=== PATIENT | female | born 2000 | race Caucasian/White ===

== ENCOUNTER 2021-01-06 14:05 | Outpatient (CLI) | payer OTHER, SELFPAY ==
[2021-01-06 15:18] LABS: Ferritin 28 ng/mL (8-252); Iron 221 ug/dL (50-170); Percent Iron Saturation 47 % (12-57)
[2021-01-10 10:14] LABS: Transferrin 387 mg/dL (188-341)
== END 2021-01-06 14:06 | disposition home or self-care (01) ==
LOC: CHSLAB 14:12
PROVIDERS: PCP Nurse Practitioner
DX: D64.9 Anemia, unspecified (principal)
CPT/HCPCS: 36415; 82728; 83540; 83550; 84466

== ENCOUNTER 2021-08-09 10:06 | Outpatient (CLI) | payer OTHER, SELFPAY ==
--- NOTE | ~2021-08-09 | XR_ITS ---
EXAMINATION: XR abdomen/kub 1V DATE: 08/09/2021 10:23 INDICATION: Hematuria. Left flank pain. TECHNIQUE: A supine view of the abdomen was obtained. COMPARISON: CT abdomen and pelvis 03/10/2015 FINDINGS: There are no dilated loops of bowel. There is a 2 mm stone in left kidney. There are phlebo liths in the pelvis. IMPRESSION: 1. 2 mm stone in left kidney. Reviewed, dictated and finalized at location A.
== END 2021-08-09 10:07 | disposition home or self-care (01) ==
LOC: CHSIMG 10:07
PROVIDERS: PCP Nurse Practitioner; Visit Provider Nurse Practitioner
DX: R31.9 Hematuria, unspecified (principal)
CPT/HCPCS: 74018

== ENCOUNTER 2021-09-08 07:29 | Outpatient (CLI) | payer OTHER, SELFPAY ==
--- NOTE | ~2021-09-08 | CT_ITS ---
EXAMINATION: CT abdomen pelvis wo con DATE: 09/08/2021 07:56 INDICATION: Left flank pain TECHNIQUE: Computed tomography (CT) of the abdomen and pelvis was performed without intravenous contr ast. The dose-length product (DLP) was 161.01 mGy-cm. Automated exposure control and iterative recons truction technique were employed. COMPARISON: 03/10/2015 FINDINGS: The lung bases are clear. The heart size is normal. Within the limitations of noncontrast e xamination, the liver, spleen, pancreas, gallbladder, and adrenal glands are normal. There are two no nobstructing stones of the left kidney which measure 2 mm. The right kidney is unremarkable. The uret ers are difficult to trace due to a paucity of abdominal and pelvic fat. There is a 2 mm calcificatio n in the left pelvis not definitely identified on the comparison examination which may be in the left distal ureter. No hydronephrosis or hydroureter are noted. No pathologically enlarged abdominal or p elvic lymph nodes are identified. There is no free intraperitoneal gas or evidence of bowel obstructi on. IMPRESSION: 1. Possible 2 mm stone of the distal left ureter. 2. Nonobstructing left nephrolithiasis. Reviewed, dictated and finalized at location B.
== END 2021-09-08 07:30 | disposition home or self-care (01) ==
LOC: CHSIMG 07:32
PROVIDERS: PCP Nurse Practitioner
DX: R10.9 Unspecified abdominal pain (principal); N20.0 Calculus of kidney
CPT/HCPCS: 74176

== ENCOUNTER 2021-11-01 14:56 | Outpatient (CLI) | payer OTHER, SELFPAY ==
--- NOTE | ~2021-11-01 | US_ITS ---
US retroperitoneal comp 11/01/2021 15:56 Procedure: Realtime transabdominal ultrasound of the kidneys and bladder. Indication: Left kidney stones Comparison: CT dated 09/08/2021 Findings: Renal echotexture is normal bilaterally without hydronephrosis, contour deforming mass. The re is an 4 mm echogenic focus in the lower pole of the left kidney, consistent with nonobstructing re nal stone. The right kidney measures 10.6 cm and left kidney measures 11 cm. Bladder within normal l imits. Impression: 1: Nonobstructing left nephrolithiasis. Reviewed, dictated and finalized at location A. Impression: 1: Nonobstructing left nephrolithiasis.
== END 2021-11-01 14:57 | disposition home or self-care (01) ==
LOC: CHSIMG 14:57
DX: N20.0 Calculus of kidney (principal)
CPT/HCPCS: 76770

== ENCOUNTER 2022-01-13 14:32 | Outpatient (CLI) | payer OTHER, SELFPAY ==
--- NOTE | ~2022-01-13 | XR_ITS ---
EXAMINATION: XR chest 2V DATE: 01/13/2022 14:52 INDICATION: Preoperative clearance. TECHNIQUE: PA and lateral views of the chest were obtained. COMPARISON: Chest radiograph dated 05/05/17 FINDINGS: Lungs are clear with no focal airspace opacities, pulmonary edema, pleural effusion or pneumothorax. The cardiomediastinal silhouette is normal. Visualized bones and soft tissues are unremarkable. IMPRESSION: 1. Normal chest radiograph. Reviewed, dictated and finalized at location A. IMPRESSION: 1. Normal chest radiograph.
== END 2022-01-13 14:33 | disposition home or self-care (01) ==
LOC: CHSIMG 14:34
PROVIDERS: PCP Nurse Practitioner; Visit Provider Nurse Practitioner
DX: Z01.818 Encounter for other preprocedural examination (principal)
CPT/HCPCS: 71046

== ENCOUNTER 2022-02-08 17:43 | Outpatient (CLI) | payer OTHER, SELFPAY ==
--- NOTE | ~2022-02-08 | XR_ITS ---
EXAM: XR abdomen/kub 1V DATE: 02/08/2022 18:05 HISTORY: URINARY SYMPTOM . COMPARISON: 08/09/2021, CT abdomen and pelvis 09/08/2021. FINDINGS: Clear lung bases. Normal bowel gas pattern. The liver is enlarged. Pelvic phleboliths. Reg ional bones and soft tissues normal for age. IMPRESSION: The previously described 2 mm left nephrolith is not confidently visualized. Hepatomegaly . Reviewed, dictated and finalized at location K. IMPRESSION: The previously described 2 mm left nephrolith is not confidently vi sualized. Hepatomegaly.
== END 2022-02-08 17:44 | disposition home or self-care (01) ==
LOC: CHSLAB 17:46
PROVIDERS: PCP Nurse Practitioner
DX: R39.9 Unspecified symptoms and signs involving the genitourinary system (principal)
CPT/HCPCS: 74018; 87086

== ENCOUNTER 2022-03-01 17:42 | Outpatient (CLI) | payer OTHER, SELFPAY ==
--- NOTE | ~2022-03-01 | XR_ITS ---
XR abdomen/kub 1V DATE: 03/01/2022 17:59 INDICATION: Hematuria. Left flank pain. TECHNIQUE: AP view COMPARISON: 02/08/2022 KUB 09/08/[address] abdomen pelvis FINDINGS: There are couple of calcified pelvic phleboliths on each side. No apparent urinary tract ca lcification is noted radiographically. Noncontrast CT abdomen pelvis examination would be more sensit jamie for detection of urinary tract calculi. Nonspecific bowel gas pattern without evidence of obstruction. No visceromegaly is evident. The lung bases appear clear. Mild thoracolumbar levoscoliosis. IMPRESSION: Nonspecific abdomen Reviewed, dictated and finalized at Location A. Reviewed, dictated and finalized at location A. IMPRESSION: Nonspecific abdomen
== END 2022-03-01 17:43 | disposition home or self-care (01) ==
LOC: CHSIMG 17:44
PROVIDERS: PCP Nurse Practitioner; Visit Provider Nurse Practitioner
DX: R31.9 Hematuria, unspecified (principal)
CPT/HCPCS: 74018

== ENCOUNTER 2022-03-27 09:29 | Outpatient (CLI) | payer OTHER, SELFPAY ==
--- NOTE | ~2022-03-27 | US_ITS ---
US retroperitoneal comp 03/27/2022 10:13 Procedure: Realtime transabdominal ultrasound of the kidneys and bladder. Indication: Nephrolithiasis Comparison: Flank pain. History of nephrolithiasis.. Findings: Renal echotexture is normal bilaterally without hydronephrosis, contour deforming mass. The re are echogenic foci in both kidneys measuring up to 4 mm on the right and 8 mm on the left, suspici ous for nonobstructing renal stones. The right kidney measures 11.1 cm and left kidney measures 10.9 cm. Bladder within normal limits. Prevoid volume is 6 12 cc. Postvoid volume is 10 cc. Impression: 1: Possible bilateral nonobstructing renal stones. No hydronephrosis. Reviewed, dictated and finalized at location B. F INNOVATION OFFICER Impression: 1: Possible bilateral nonobstructing renal stones. No hydronephrosis.
== END 2022-03-27 09:30 | disposition home or self-care (01) ==
LOC: CHSIMG 09:30
PROVIDERS: PCP Nurse Practitioner
DX: N20.0 Calculus of kidney (principal)
CPT/HCPCS: 76770

== ENCOUNTER 2024-05-23 00:26 | Day surgery (SDC) | payer BC, SELFPAY ==
--- NOTE | 2024-05-21 16:15 | PM.IMHP ---
H&P: HPI History of Present Illness Date/Time: 05/21/24 16:15 Chief Complaint: Missed 1st trimester Narrative: 23-year-old 1 para 0 under 1st trimester with demise uterus is about 6-7 weeks in size with no heart tones. Risks and benefits of suction D and C reviewed Review of Systems Review of Systems: All systems reviewed & are unremarkable except as noted in HPI and below Exam Const: General: cooperative, healthy appearing and comfortable Nutritional Appearance: average body habitus Orientation/consciousness: oriented to person, oriented to place and oriented to time Resp: Effort & Inspection: normal respiratory effort Cardio: Rate: regular rate Rhythm: regular rhythm Heart sounds: S1 normal heart sound present and S2 normal heart sound present GI: Inspection: normal to inspection : External Female Exam: normal external appearance Speculum Exam - Vagina: normal appearance of the vagina Speculum Exam - Cervix: normal appearance of the cervix Bimanual exam- vagina & uterus: enlarged Bimanual Exam- Adnexa, other: normal adnexae Assessment and Plan Assessment and plan (1) Missed : Code(s): O02.1 - Missed Status: Acute Plan Proceed with suction dilatation and curettage
[2024-05-22 08:49] VITALS: BMI 23.6
--- NOTE | 2024-05-22 08:50 | PC.NURSE ---
Report to the Outpatient Waiting Room, entrance under the green pavilion located off [facility], at time _115pm_ on date _[id number]_. Planned Procedure Time: _315pm_.? Time changes happen often and if your time is changed the preop area will call you the afternoon before. - You and your visitor will be asked to self-screen and do not enter if you have any COVID symptoms. Please call surgeon if you need to reschedule. - A mask is optional within the hospital at this time. Patients may have clear liquids (water, carbonated beverages, clear teas, apple juice) until 3 hours prior to surgery with a maximum of 20 ounces. - No food from midnight until time of surgery and no smoking. This includes no chewing gum, candy or mints. Take only the following medications with a SIP of water on the morning of surgery: ___Sertraline___ DO NOT STOP ANY OF YOUR OTHER PRESCRIPTION MEDICATIONS PRIOR TO SURGERY EXCEPT THE FOLLOWING Medications to discontinue per physician ____Vitamin Date to take last dose__Stop now.__ Please no make-up, nail czech, hairspray, perfume, deodorant, or body powder the day of surgery.? No jewelry (including any body piercings) or valuables the day of surgery, leave them at home.? Please take a shower or bath the night before, or the morning of, surgery with an antibacterial soap.? Wear comfortable, loose fitting clothing.? - Jewelry must be removed prior to entering the operating room.? Rings and piercings that are not removed may be cut off. - The hospital will not accept responsibility for valuables.? - Please leave all valuables, including medications, at home the day of surgery. If you are going home after surgery, a licensed c[employer] company driver must drive you home.? - NO public transportation without another adult if you receive anesthesia. - We recommend that an adult stay with you for 24 hours following discharge. - We also recommend that you do not drive, make important decision, drink alcoholic beverages, or take any drugs that were not prescribed by your health care provider for at least 24 hours after your discharge time. Follow any additional instructions given to you from your surgeon. Telephone instructions given to __Milagro__and asked if any additional questions and then verbalized understanding. Patient advised to call surgeon office or pre surgery nurse liaison [phone] if any additional questions.
--- NOTE | 2024-05-23 07:18 | WPDHPUPDATE1 ---
History and Physical Update Update Date/Time: 05/23/24 07:18 History and Physical has been reviewed, including an updated exam of the patient. There are NO changes in the patient's condition. Risks, benefits, and alternatives have been discussed and questions answered. Patient agrees to proceed with procedure.
[2024-05-23 13:20] VITALS: BP 118/61; PULSE 78; RESP 16; TEMP 37.1; O2SAT 100
[2024-05-23] MEDS: ACETAMINOPHEN 500 MG TABLET 1000 MG PO (13:40)
--- NOTE | 2024-05-23 13:44 | WPDANESEPPF ---
Anes - Initial Pre Proc Eval Procedure: Operation Date: 05/23/24 15:15 Proposed Procedures p Suction Dilatation and Curettage - Timothy Whiting MD Date/Time: 05/23/24 13:44 Surgeon: Timothy Whiting MD Pre Op Diagnosis: missed AB Patient Data Age: 23 Gender: F Height: 1.5 m Weight: 53.2 kg Allergies Allergy/AdvReac Type Severity Reaction Status Date / Time No Known Allergies Allergy Verified 05/22/24 08:40 Home Medications ?Medication ?Instructions ?Recorded ?Confirmed ?Type vit no.95-ferrous 1 tablet PO DAILY 05/22/24 05/22/24 History fumarate 28 mg-folic acid 800 mcg tablet () sertraline 100 mg tablet 100 mg PO DAILY 05/22/24 05/22/24 History hydrocodone 5 mg-acetaminophen 325 1 tablet PO Q4H PRN pain #14 tabs 05/23/24 Rx mg tablet Patient hx anesthesia problems: none Family hx anesthesia problems: none Results Review: All pre-operative results and documents have been reviewed as part of the pre-operative evaluation. [facility] Past Medical History Medical History (Updated 05/23/24 @ 13:44 by Timothy Crisostomo MD) Missed Surgical History Surgical History (Updated 05/23/24 @ 13:44 by Timothy Crisostomo MD) H/O colonoscopy Social History Social History Smoking packs per day: 1 Smoking cigarettes per day: 20.0 Years smoked: 3 Smoking pack-years: 3.00 Smoking status: Current every day smoker Tobacco type: cigarettes Additional smoking assessment comments: Stopped for , hopes to not restart. Living arrangements: with family Spiritual care concerns: No Anes - Eval Final PreProcedure Day of Procedure 05/23/24 13:44 Patient weight: normal Heart: regular rate and rhythm Lungs: clear to auscultation Airway: Mallampati scale class II Neurological: alert and oriented Last oral intake: >/= 8 hours ASA classification: II Emergent: no Anesthetic plan: proceed Anesthesia type and monitoring: general GIVS and standard monitoring Results Review: All pre-operative results and documents have been reviewed as part of the pre-operative evaluation. Informed Consent: The patient's anesthetic plan and its attendant risks and benefits were discussed with the patient/family/POA. Questions were solicited and answers provided to the satisfaction of the patient/family/POA.
[2024-05-23] MEDS: LACTATED RINGERS 1,000 ML 30 ML IV CONT (13:45)
--- NOTE | 2024-05-23 14:39 | W.PM.PROC2 ---
Procedure Note - Detailed Date of Procedure 05/23/24 Pre-op Diagnosis missed AB Post-op Diagnosis Same Procedure Performed Suction dilatation and curettage Surgeon Timothy Whiting MD Anesthesia MAC and Local Indications This is 23-year-old 1 para 0 with first-trimester missed Findings Uterus sounded to 9cm. Tissue consistent with products of conception Description of Procedure The patient was prepped draped in the normal sterile fashion a placed in dorsal lithotomy position. Under excellent IV sedation weighted speculum placed in posterior fornix vagina. Anterior lip of the cervix grasped with a single-tooth tenaculum. 2.5cc 1% xylocaine anesthesia placed at 2, 4, 8, 10:00 a.m. of the cervix. Uterus sounded to 9cm. Serial dilatation with fragmented dilators performed followed by passes the 9. Suction curette removing a moderate amount of placental tissue. When a good grating sound was heard the instruments withdrawn the patient went to recovery in satisfactory condition. All sponge, needle, instrument counts were correct. There were no immediate complications Estimated Blood Loss 25 Drains No Packing No Pathology Yes Complications No immediate complications Condition Stable Disposition PACU
[2024-05-23 14:43] VITALS: BP 102/54; PULSE 73; RESP 16; O2SAT 98
[2024-05-23 15:10] VITALS: BP 95/59; PULSE 60; O2SAT 100
[2024-05-23 15:35] VITALS: BP 107/59; PULSE 59; RESP 18
--- OUTSIDE RECORDS SUMMARY | 2024-05-29 04:52 | XMS_ITS | Encounter Summary ---
Author Organization [facility] Address [facility]. [place], [place] [id number] [place] [address] Care Team Providers Care Business Performance Manager Name Role Phone Ana Maria Kidd [facility] Primary Care Provider [phone] Encounter Details Date Type Department Care Team (Late st Contact Info) Description 10/12/2018 Abstract SFL CONVERSION [address] [place] [address] , Generic Conversion, Social History Tobacco Use Types Packs/Day Years Used Date Smoking Tobacco: Never Assessed Comments Unknown Sex and Gender Information Value Date Recorded Sex Assigned at Not on file Legal Sex Female 10:57 PM AUDITOR Gender Identity Not on file Sexual Orientation Not on file documented as of this encounter Plan of Treatment Not on file documented as of this encounter Visit Diagnoses Not on filedocumented in this encounter Care Teams Business Performance Manager Relationship Specialty Start Date End Date Ana Maria Kidd FNP- [address] [place] [address] PCP - General NURSE PRACTITIONER 01/06/19 documented as of this encounter
--- OUTSIDE RECORDS SUMMARY | 2024-05-29 04:52 | XMS_ITS | Clinical Summary ---
Author Organization [facility] Address [address] [place] [address] Phone Care Team Providers Care Marketing Systems Analyst Name Role Phone Ramin Askew APRN, DIANA Unavailable Ramin Askew APRN, CNP Primary Care Pr ovider Allergies No known active allergies Medications propranolol (INDERAL) 10 MG Tablet Take 10 mg by mouth 2 times daily. 05/17/2023 Active sertraline (ZOLOFT) 100 MG Tablet Take 100 mg by mouth daily. Active pantoprazole (PROTONIX) 40 MG Tablet Delayed ResponseIndicati ons:Gastritis without bleeding, unspecified chronicity, unspecified gastritis type Take 1 Tablet by mouth daily. 90 Tablet 1 05/21/2023 Active sucralfate (CARAFATE) 1 GM TabletIndication s:Gastritis without bleeding, unspecified chronicity, unspecified gastritis type Take 1 Tablet by mouth every 6 hours. 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 Irritable bowel syndrome with constipation 02/21 Chronic constipation 01/17/2021 Anemia 12/29/2020 Immunizations Immunization Administration Dates Next Due DTAP VACCINE 02/02/2004, 2,03/29/1999,11/30,1998 HEP B/HIB Combined Vaccine 1998,1998 Hepatitis B Vaccine, Pediatric/adolescent 02/10/2002 Hib Vaccine,unspecified Formulation 02/10/2002 Human Papillomavirus Vaccine (HPV), quadrivalent 03/04/2014,10/21/2013,03/02/2010 Inactivated Polio Vaccine 02/02/2004,11/2001,1998,09/28 Influenza Vaccine, Quadrivalent, PF 03/04/2014 MMR Vaccine 02/02/2004,02/10/2002 Meningococcal C Conjugate Vaccine 03/02/2010 Meningococcal Vaccine 03/17/2015 TDAP Vaccine 03/02/2010 Varicella Vaccine Live 03/02/2010,02/10/2002 Family History Medical History Relation Name Comments Cancer Maternal Grandfather Lung Diabetes Maternal Grandmother Diabetes Mother Relation Name Status Comments Maternal Grandfather Maternal Grandmother Mother Social History Tobacco Use Types Packs/Day Years Used Date Smoking Tobacco: Never Smokeless Tobacco: Never Tobacco Cessation:Counseling Given: No Alcohol Use Standard Drinks/Week Comments Yes 4 (1 standard drink = 0.6 oz pur e alcohol) on weekends PHQ-2 Answer Date Recorded Total Score - Questions 1-9 2 04/06 Education Answer Date Recorded What is the highest level of school you have completed or the highest degree you have received? 12th grade 04/21/2022 Sexually Active Control Partners Comments Yes Oral Contraceptive Male Comments No Sex and Gender Information Value Date Recorded Sex Assigned at Not on file Legal Sex Female 4:47 PM CDT Gender Identity Not on file Sexual Orientation Not on file Last Filed Vital Signs Vital Sign Reading Time Taken Comments Blood Pressure 126/70 05/21/2023 8:53 AM BONE WORKER Pulse 54 05/21/2023 8:53 AM BONE WORKER Temperature 36.4 ??C (97.6 ??F) 05/21/2023 8:53 AM CS T Respiratory Rate 16 05/21/2023 8:53 AM BONE WORKER Oxygen Saturation 100% 05/21/2023 8:53 AM BONE WORKER Inhaled Oxygen Concentration - - Weight 52.3 kg (115 lb 4.8 oz) 05/21/2023 8:53 A M BONE WORKER Height 149.9 cm (4' 11 ) 05/21/2023 8:53 AM BONE WORKER Body Mass Index 23.29 05/21/2023 8:53 AM BONE WORKER Plan of Treatment Health Maintenance Due Date Last Done Comments Hepatitis C Virus (HCV) Screening 1998 Pap Smear 2019 DTaP/Tdap/Td Immunization (7 - Td or Tdap) 03/02/2020 03/02/2010, 02/02/2004, 02/10/2002, Additional history exists Influenza Immunization (#1) 2024 03/04/2014 SARS-COV-2 Immunization ( - 2023- season) 2024 Respiratory Syncytial Virus (RSV) Immunization (Adult) (1 - 1-dose 75+ series) 2073 Hepatitis B Immunization Completed 002, 1998, 1998 Human Papillomavirus (HPV) Immunization Completed 03/04/2014, 10/21/2013, 03/02/2010 Meningococcal Immunization (ACWY) Completed 03/17/2015 Pneumococcal Immunization Combined Aged Out No longer eligible based on patient's age to complete this topic Rotavirus Immunization Aged Out No lo nger eligible based on patient's age to complete this topic Care Teams Marketing Systems Analyst Relationship Specialty Start Date End Date Ramin Askew APRN, DIANA #[address] [address] PCP - General Advanced Practice Nurse 01/13/21 Ramin Askew APRN, DIANA #[address] [address] Nurse Practitioner Advanced Practice Nurse 12/24/20
--- OUTSIDE RECORDS SUMMARY | 2024-05-29 04:52 | XMS_ITS | Clinical Summary ---
Author Organization [facility] Address [address] [facility]. [place], [place] [address] [place] [address] Care Team Providers Care Dramatic Agent Name Role Phone Ana Maria Kidd [facility] Primary Care Provider [phone] Allergies No known active allergies Medications dextromethorphan -guaiFENesin ER (MUCINEX DM) 30-600 MG TABLET SR 12 HR 12 hr tabletIndication s:Acute cough,Fluid level behind tympanic membrane of both ears,Viral URI with cough Take 1 tablet by mouth every 12 (twelve) hours as needed. 28 tablet 04/18/2024 Active Encounters Date Type Department Care Team Description 04/18/2024 8:40 AM OFFICE MACHINES TEACHER Office Visit [place] [address] [place] [address] Julian aBrnes MD Congestion (Head congestion/Symptoms started beginning of April, she was taking sudafed and dayquil/nyquil but then had a missed period and took a test which was positive so she doesn't know what she is able to take. ); Sinus Problem (Post nasal drainage/) 04/18/2024 Travel from Last 3 Months Social History Tobacco Use Types Packs/Day Years Used Date Smoking Tobacco: Former Smokeless Tobacco: Former Tobacco Cessation:Counseling Given: Yes Alcohol Use Standard Drinks/Week Comments Yes 0 (1 standard drink = 0.6 oz pur e alcohol) rarely AUDIT-C Answer Date Recorded Frequency of Alcohol Consumption Never 01/06/2019 Average Number of Drinks Not on file 019 Frequency of Binge Drinking Not on file 06/2018 PHQ-2 Answer Date Recorded Patient Health Questionnaire-2 Score 0 04/18/2024 Comments Yes Sex and Gender Information Value Date Recorded Sex Assigned at Not on file Legal Sex Female 10:57 PM OFFICE MACHINES TEACHER Gender Identity Not on file Sexual Orientation Not on file Last Filed Vital Signs Vital Sign Reading Time Taken Comments Blood Pressure 114/72 04/18/2024 8:50 AM OFFICE MACHINES TEACHER Pulse 60 04/18/2024 8:50 AM OFFICE MACHINES TEACHER Temperature 36.1 ??C (97 ??F) 04/18/2024 8:50 AM OFFICE MACHINES TEACHER Respiratory Rate 16 04/18/2024 8:50 AM OFFICE MACHINES TEACHER Oxygen Saturation 99% 04/18/2024 8:50 AM OFFICE MACHINES TEACHER Inhaled Oxygen Concentration - - Weight 53.1 kg (117 lb) 04/18/2024 8:50 AM OFFICE MACHINES TEACHER Height 149.9 cm (4' 11 ) 04/18/2024 8:50 AM OFFICE MACHINES TEACHER Body Mass Index 23.63 04/18/2024 8:50 AM OFFICE MACHINES TEACHER Plan of Treatment Health Maintenance Due Date Last Done Comments Cervical Cancer Screening Pap Smear (Age 21 to 29) Every 3 Years 1998 Cervical Cancer Screening 1998 Annual Physical 2001 Hepatitis C 2016 DTaP, Tdap and Td Vaccines (7 - Td or Tdap) 03/02/2020 03/02/2010, 02/02/2004, 02/10/2002, Additional history exists COVID-19 Vaccine ( season) 2024 Influenza Adult (#1) 2024 03/04/2014 PHQ-2 (Physician [place]) 04/18/2025 04/18/2024 RSV Immunization or 60+ Years (1 - 1-dose 75+ series) 2073 Hepatitis B Vaccines Completed 02/10/2002, 1998, 1998 HPV Vaccines Completed 03/04/2014, 10/05, 03/02/2010 Meningococcal Vaccine Completed 03/17/2015, 010 Pneumococcal Vaccine: Pediatrics (0 to 5 Years) and At-Risk Patients (6 to 64 Years) Aged Out No longer eligible based on patient's age to complete this topic RSV Immunizations Under 20 Months Aged Out No longer eligible based on patient's age to complete this topic Insurance [facility] Care Teams Dramatic Agent Relationship Specialty Start Date End Date Ana Maria Kidd FNP-BC [address] [place] [address] PCP - General NURSE PRACTITIONER 01/06/19
== END 2024-05-23 15:50 | disposition home or self-care (01) ==
PROVIDERS: PCP Physician Assistant; Visit Provider Obstetrics & Gynecology
PROC: (CPT 59820; principal; 2024-05-23 15:15)
DX: O02.1 Missed abortion (principal); F17.210 Nicotine dependence, cigarettes, uncomplicated; Z79.891 Long term (current) use of opiate analgesic
CPT/HCPCS: 59820; 36415; 85461; 86850; 86900; 86901; 88305; A9270; J2003; J2250; J2704; J3010; J7120

== ENCOUNTER 2024-07-17 09:05 | Emergency (ER) | payer BC, SELFPAY ==
--- NOTE | 2024-07-17 09:05 | ED_ITS ---
HPI - URI/Sore Throat General Chief Complaint: Abdominal Pain Stated Complaint: exposed to flu Time Seen by Provider: 07/17/24 09:19 Source: patient, RN notes reviewed and old records reviewed Mode of arrival: ambulatory Limitations: no limitations History of Present Illness HPI Narrative: 24-year-old female presents to the [facility] with not feeling well. Start late last night or early this morning. Has had nausea. Was seen at a urgent care in [place] couple of days ago pop, was told she had allergies and to continue taking Zyrtec. Has also taken [id number] sinus medications. Patient is concerned because on Sunday, 2 days ago had an exposure to flu. Denies fevers. Patient reports ear discomfort. Onset (ago): hour(s) Treatments prior to arrival: cold medicine Related Data Home Medications ?Medication ?Instructions ?Recorded ?Confirmed ?Last Taken ?Type vit no.95-ferrous 1 tablet PO DAILY 05/22/24 05/23/24 05/22/24 History fumarate 28 mg-folic acid 800 mcg tablet () sertraline 100 mg tablet 100 mg PO DAILY 05/22/24 05/23/24 05/22/24 History nortriptyline 10 mg capsule mg 07/17/24 Unknown History Allergies Allergy/AdvReac Type Severity Reaction Status Date / Time No Known Allergies Allergy Verified 05/23/24 13:49 Review of Systems Review of Systems: All systems reviewed & are unremarkable except as noted in HPI and below Constitutional: Constitutional: Reports no additional constitutional complaints ENT: Reports as per HPI Cardiovascular: Cardiovascular: Reports no additional cardiovascular complaints, Denies chest pain and Denies dyspnea Respiratory: Respiratory: Reports no additional respiratory complaints, Denies chest congestion, Denies cough and Denies dyspnea Gastrointestinal: Gastrointestinal: Reports as per HPI, Reports nausea and Denies vomiting Musculoskeletal: Musculoskeletal: Reports no additional musculoskeletal complaints Integumentary/Breasts: Skin/Breast: Reports system reviewed and no additional complaints, except as docu PMFSH Past Medical History Medical History Missed Surgical History Surgical History H/O colonoscopy Social History Social History (Reviewed 07/17/24 @ 17:19 by KRYSTAL José Smoking packs per day: 1 Smoking cigarettes per day: 20.0 Years smoked: 3 Smoking pack-years: 3.00 Smoking status: Current every day smoker Tobacco type: cigarettes Additional smoking assessment comments: Stopped for , hopes to not restart. Living arrangements: with family Spiritual care concerns: No Comments At the time of my signature, I reviewed and agree with the nursing past medical, surgical, social, and family history. There is no relevant family history pertinent to the patient complaint. Exam Const: General: cooperative, healthy appearing, comfortable, no acute distress, well developed, alert and well nourished Nutritional Appearance: well nourished Orientation/consciousness: patient oriented x3 Limitations: no limitations HENMT: Head: normal to inspection Ears: hearing grossly normal bilaterally, external ears normal, TM's normal bilaterally, mastoids normal, no periauricular adenopathy and Abnormal EAC present Face/Nose/Sinus: Normal external nose present, Normal nares present, Normal nasal mucous membranes and turbinates present and No nasal discharge present Face and sinus: normal facial exam and face symmetric Mouth: Yes Normal oral and palatal mucosa present, Yes lip normal, Yes tongue normal and Yes moist mucous membranes Throat: posterior oropharynx normal, uvula midline and postnasal drainage Eyes: General: appearance normal, both eyes and all related structures Alignment and Position: alignment normal Neck: Neck: normal visual inspection, full ROM, no lymphadenopathy and no meningeal signs Chest: Chest palpation & inspection: normal inspection of the chest Resp: Effort & Inspection: normal respiratory effort and able to speak in complete sentences Auscultation: clear to auscultation bilaterally, no crackles, no rales, no rhonchi and no wheezes Cardio: Rate: regular rate Skin: General skin exam: normal color and no rashes or lesions noted Neuro: General: patient oriented x3, gait normal, moves all extremities and no meningeal signs Cognition (Neuro): normal cognition Speech: normal speech Gait exam (Neuro): Normal gait present Extrem: General: normal to inspection, full ROM, capillary refill normal and normal gait Psych: Appearance: grossly normal and well kempt Mental Status: mental status grossly normal Speech and movement: Normal speech and movement present and Clear speech present Affect: normal affect Attitude: cooperative Course Course Level of Care: Express Care Visit Vital Signs Vital signs: Vital Signs Temperature 98.1 F 07/17/24 09:12 Pulse Rate 65 07/17/24 09:12 Respiratory Rate 16 07/17/24 09:12 Blood Pressure 141/88 H 07/17/24 09:12 Pulse Oximetry 100 07/17/24 09:12 Oxygen Delivery Room Air 07/17/24 09:12 Temperature 98.1 F 07/17/24 09:12 Pulse Rate 65 07/17/24 09:12 Respiratory Rate 16 07/17/24 09:12 Blood Pressure 141/88 H 07/17/24 09:12 Pulse Oximetry 100 07/17/24 09:12 Oxygen Delivery Room Air 07/17/24 09:12 Reviewed MDM - URI/Sore Throat MDM Narrative Medical decision making narrative: Patient sitting in exam room. Nontoxic, vitals stable. Patient presents with URI symptoms, allergy like symptoms Patient is flu and COVID negative. Patient appropriate for outpatient treatment and follow-up Discharge instructions reviewed with patient, as well as provided in writing per nursing staff. The instructions also include specific and strict return/GO TO THE ER as well as f/u information. All questions have been answered, and the patient deny any further questions wi th discharge and discharge plan. Some parts of this dictation were generated by voice recognition software and may contain typographical and/or grammatical inaccuracies. Differential Diagnosis Differential diagnosis: Likely upper respiratory infection, otitis media, sinusitis, viral infection, bronchitis, influenza and pharyngitis Lab Data Labs: Lab Results 07/17/24 Range/Units 09:35 POC Influenza A Ag Negative (Negative) POC Influenza B Ag Negative (Negative) POC SARS CoV-2 Ag Negative (Negative) Reviewed Critical Care Time Critical Care Time Critical Care Time: No Discharge Plan Discharge Clinical Impression: Upper respiratory infection, viral Patient Disposition: Home, Self-Care Condition: Stable Instructions: Antibiotic Form, Upper Respiratory Infection (ED) Additional Instructions: continue [id number]-[id number] allergy medication today your flu and COVID test were negative. If you still have concerns for flu or COVID you can purchase a test from [employer] and retest in 2-3 days. Follow-up with your primary care provider for new or worsening symptoms go directly to the emergency room Patient Language: Persian Prescriptions: No Action nortriptyline 10 mg capsule sertraline 100 mg tablet 100 mg PO DAILY PNV cmb#95-ferrous fumarate-FA [] 28 mg iron- 800 mcg tablet 1 tablet PO DAILY Follow-up/Referrals: UNKNOWN,DOCTOR [Non-Staff] - Stand Alone Forms: Work/School Release IP Time of Disposition: 09:32
[2024-07-17 09:12] VITALS: BP 141/88; PULSE 65; RESP 16; TEMP 36.7; O2SAT 100
[2024-07-17 09:37] LABS: EDCOVIDSCREEN Negative (Negative); EDINFLUASCREEN Negative (Negative); EDINFLUBSCREEN Negative (Negative)
--- OUTSIDE RECORDS SUMMARY | 2024-07-17 10:02 | XMS_ITS | Encounter Summary ---
Author Organization [facility] Address [address] [place] [address] Care Team Providers Care Rotary Peel Oven Tender Name Role Phone Ana Maria Kidd [facility] Primary Care Provider [phone] Encounter Details Date Type Department Care Team (Late st Contact Info) Description 10/12/2018 Abstract SFL CONVERSION [address] [place] [address] , Generic Conversion, Social History Tobacco Use Types Packs/Day Years Used Date Smoking Tobacco: Never Assessed Comments Unknown Sex and Gender Information Value Date Recorded Sex Assigned at Not on file Legal Sex Female 10:57 PM [employer] TECH Gender Identity Not on file Sexual Orientation Not on file documented as of this encounter Plan of Treatment Not on file documented as of this encounter Visit Diagnoses Not on filedocumented in this encounter Care Teams Rotary Peel Oven Tender Relationship Specialty Start Date End Date Ana Maria Kidd FNP- [address] [place] [address] PCP - General NURSE PRACTITIONER 01/06/19 documented as of this encounter
--- OUTSIDE RECORDS SUMMARY | 2024-07-17 10:02 | XMS_ITS | Clinical Summary ---
Author Organization [facility] Address [address] [place] [address] Phone Care Team Providers Care Sweet Pickled Fruit Maker Name Role Phone Ramin Askew APRN, DIANA [...] Comments Blood Pressure 126/70 05/21/2023 8:53 AM WAITER/WAITRESS TAVERN Pulse 54 05/21/2023 8:53 AM WAITER/WAITRESS TAVERN Temperature 36.4 C (97.6 F) 05/21/2023 8:53 AM WAITER/WAITRESS TAVERN Respiratory Rate 16 05/21/2023 8:53 AM WAITER/WAITRESS TAVERN Oxygen Saturation 100% 05/21/2023 8:53 AM WAITER/WAITRESS TAVERN Inhaled Oxygen Concentration - - Weight 52.3 kg (115 lb 4.8 oz) 05/21/2023 8:53 A M WAITER/WAITRESS TAVERN Height 149.9 cm (4' 11 ) 05/21/2023 8:53 AM WAITER/WAITRESS TAVERN Body Mass Index 23.29 05/21/2023 8:53 AM WAITER/WAITRESS TAVERN Plan of Treatment Health Maintenance Due Date [...] age to complete this topic Care Teams Sweet Pickled Fruit Maker Relationship Specialty Start Date End Date Ramin Askew APRN, TRADE RECRUITER #[address] [address] PCP - General Advanced Practice Nurse 01/13/21 Ramin Askew APRN, DIANA #[address] [address] Nurse Practitioner Advanced Practice Nurse 12/24/20
--- OUTSIDE RECORDS SUMMARY | 2024-07-17 10:02 | XMS_ITS | Clinical Summary ---
Author Organization [facility] Address [address] [place] [address] Care Team Providers Care Spring Crater Name Role Phone Ana Maria Kidd [facility] Primary Care Provider [phone] Allergies No known active allergies Medications dextromethorphan -guaiFENesin ER (MUCINEX DM) 30-600 MG TABLET SR 12 HR 12 hr tabletIndication s:Acute cough,Fluid level behind tympanic membrane of both ears,Viral URI with cough Take 1 tablet by mouth every 12 (twelve) hours as needed. 28 tablet 04/18/2024 Active Encounters Date Type Department Care Team Description 04/18/2024 8:40 AM JELLY MAKER Office Visit [address] [place] [address] Julian Barnes MD Congestion (Head congestion/Symptoms started beginning of [...] on file Legal Sex Female 10:57 PM JELLY MAKER Gender Identity Not on file Sexual Orientation Not on file Last Filed Vital Signs Vital Sign Reading Time Taken Comments Blood Pressure 114/72 04/18/2024 8:50 AM JELLY MAKER Pulse 60 04/18/2024 8:50 AM JELLY MAKER Temperature 36.1 C (97 F) 04/18/2024 8:50 AM JELLY MAKER Respiratory Rate 16 04/18/2024 8:50 AM JELLY MAKER Oxygen Saturation 99% 04/18/2024 8:50 AM JELLY MAKER Inhaled Oxygen Concentration - - Weight 53.1 kg (117 lb) 04/18/2024 8:50 AM JELLY MAKER Height 149.9 cm (4' 11 ) 04/18/2024 8:50 AM JELLY MAKER Body Mass Index 23.63 04/18/2024 8:50 AM JELLY MAKER Plan of Treatment Health Maintenance Due Date Last Done Comments Cervical Cancer Screening Pap Smear (Age 21 to 29) Every 3 Years 1998 Cervical Cancer Screening 1998 Annual Physical 2001 Hepatitis C 2016 DTaP, Tdap and Td Vaccines (7 - Td or Tdap) 03/02/2020 03/02/2010, 02/02/2004, 02/10/2002, Additional history exists COVID-19 Vaccine ( season) 2024 Influenza Adult (#1) 2024 03/04/2014 PHQ-2 ([facility]) 05/07/2024 04/18/2024 PHQ-2 ([facility]) 04/18/2025 04/18/2024 RSV Immunization or 60+ Years (1 - 1-dose 75+ series) 2073 Hepatitis B Vaccines Completed 02/10/2002, 1998, 1998 HPV Vaccines Completed 03/04/2014, 10/05, 03/02/2010 Meningococcal Vaccine Completed 03/17/2015, 010 Meningococcal B Vaccine Aged Out No l onger eligible based on patient's age to complete this topic Pneumococcal Vaccine: Pediatrics (0 to 5 Years) and At-Risk Patients (6 to 64 Years) Aged Out No longer eligible based on patient's age to complete this topic RSV Immunizations Under 20 Months Aged Out No longer eligible based on patient's age to complete this topic Insurance [facility] Care Teams Spring Crater Relationship Specialty Start Date End Date Ana Maria Kidd FNP-BC [address] [place] [address] PCP - General NURSE PRACTITIONER 01/06/19
== END 2024-07-17 09:36 | disposition home or self-care (01) ==
PROVIDERS: Emergency Provider Nurse Practitioner
DX: J06.9 Acute upper respiratory infection, unspecified (principal); B97.89 Other viral agents as the cause of diseases classified elsewhere; F17.210 Nicotine dependence, cigarettes, uncomplicated; Z20.822 Contact with and (suspected) exposure to COVID-19
CPT/HCPCS: 87426; 87804; 99212; G0463

== ENCOUNTER 2025-03-15 18:37 | Observation (INO) | payer BC, SELFPAY ==
[2025-03-15 21:31] VITALS: BMI 24.0
--- NOTE | 2025-03-15 21:31 | OBADM ---
This patient, Milagro Mcfadden, admitted to the OB room Labor/Delivery/Recovery 106 for observation. Patient/family oriented to hospital policies and general routines including ID bracelet, bed and alarms, visiting hours, pain management, procedures, bathroom and other care routines, personal items, smoking policy, room service/diet, and visiting hours. Patient/Family are encouraged to report perceived risks to care and to ask questions if they do not understand what they are told or what they should do.
--- NOTE | 2025-03-18 06:28 | PM.OBTRLD ---
OB - Triage/Final Diagnosis Visit Information Reason for evaluation: threatened labor Comments/Additional reasons for admission: I have assessed the risk for this patient, Milagro Mcfadden, and determined that she would benefit from observation care.
== END 2025-03-15 21:30 | disposition home or self-care (01) ==
PROVIDERS: Admitting Provider Obstetrics & Gynecology; Visit Provider Obstetrics & Gynecology
DX: O47.1 False labor at or after 37 completed weeks of gestation (principal); Z3A.38 38 weeks gestation of pregnancy
CPT/HCPCS: G0378; G0379

== ENCOUNTER 2025-03-16 15:45 | Observation (INO) | payer BC, SELFPAY ==
[2025-03-16 18:32] VITALS: BMI 24.5
[2025-03-16 18:38] LABS: OBXCEM ROM Plus Negative (Negative)
--- NOTE | 2025-03-18 06:27 | PM.OBTRLD ---
OB - Triage/Final Diagnosis Visit Information Reason for evaluation: threatened labor Comments/Additional reasons for admission: I have assessed the risk for this patient, Milagro Mcfadden, and determined that she would benefit from observation care. Evaluation Laboratory results: Laboratory Tests 03/16/25 16:22 Membranes Rupture Rom plus negative
== END 2025-03-16 19:09 | disposition home or self-care (01) ==
PROVIDERS: Admitting Provider Obstetrics & Gynecology; Visit Provider Obstetrics & Gynecology
DX: O47.1 False labor at or after 37 completed weeks of gestation (principal); Z3A.38 38 weeks gestation of pregnancy
CPT/HCPCS: 84112; G0378; G0379

== ENCOUNTER 2025-03-18 10:35 | Inpatient (IN) | payer BC, SELFPAY ==
[2025-03-18] VITALS (12 sets, daily range): BP systolic 109–172; BP diastolic 59–153; PULSE 54–98; RESP 16–18; TEMP 36.6–37.6; O2SAT 99–100; BMI 24.5
[2025-03-18 11:44] LABS: Hematocrit 30.5 % (37.0-47.0); Hemoglobin 10.6 g/dL (12.0-15.0); Immature Granulocyte Percent A 0.5 % (0-0.5); Lymphocytes Absolute Auto 2.02 K/mm3 (0.9-3.2); Mean Corpuscular HGB Conc 34.8 g/dl (32-36); Mean Corpuscular Hemoglobin 30.5 pg (26-34); Mean Corpuscular Volume 87.6 fl (80-100); Nucleated Red Blood Cells Absolute Auto 0.000 K/mm3 (0.0-0.012); Nucleated Red Blood Cells Perc 0.0 % (0.0-0.2); Platelet Count Result 312 k/mm3 (150-375); Red Blood Count 3.48 M/mm3 (4.2-5.4); White Blood Count 16.6 K/mm3 (4.5-10.0)
[2025-03-18] MEDS: ONDANSETRON INJ 4 MG/2 ML VIAL IV PUSH (11:47)
[2025-03-18] MEDS: LACTATED RINGERS 1,000 ML 125 ML IV CONT (11:47)
--- NOTE | 2025-03-18 11:50 | PM.IMHP ---
H&P: HPI History of Present Illness Date/Time: 03/18/25 11:50 Chief Complaint: Rupture membranes at term Narrative: This is a 24-year-old 2 para 0010 whose last menstrual period was 06/22/2024, EDC is 03/29/2025, confirmed by 10 week ultrasound who presents at 38 half weeks gestation with spontaneous rupture membranes prior to admission. She is negative for group B strep passed her diabetic screen she notes from ruptured membranes just prior to admission Review of Systems Review of Systems: All systems reviewed & are unremarkable except as noted in HPI and below Constitutional: Constitutional: Reports no additional constitutional complaints ENT: Reports as per HPI Cardiovascular: Cardiovascular: Reports no additional cardiovascular complaints, Denies chest pain and Denies dyspnea Respiratory: Respiratory: Reports no additional respiratory complaints, Denies chest congestion, Denies cough and Denies dyspnea Gastrointestinal: Gastrointestinal: Reports as per HPI, Reports nausea and Denies vomiting Musculoskeletal: Musculoskeletal: Reports no additional musculoskeletal complaints Integumentary/Breasts: Skin/Breast: Reports system reviewed and no additional complaints, except as docu PMFSH Past Medical History Medical History Missed Surgical History Surgical History H/O colonoscopy Family History Family History Grandparent Diabetes 1.5, managed as type 2 Social History Social History Smoking packs per day: 1 Smoking cigarettes per day: 20.0 Years smoked: 3 Smoking pack-years: 3.00 Smoking status: Current every day smoker Tobacco type: cigarettes Additional smoking assessment comments: Stopped for , hopes to not restart. Substance use: never Lack of Transportation: No Lack of Food: Never True Current Housing: I Have Housing Concerned About Future Housing: No Difficulty Paying Gas/Electric Bills: No Difficulty Paying for Meds: No Currently Unemployed: No Education: High School Diploma/GED Difficulty w/ Childcare or Family Care: No Living arrangements: with family Spiritual care concerns: No Meds Home Medications and Allergies Home Medications ?Medication ?Instructions ?Recorded ?Confirmed ?Type vit no.95-ferrous 1 tablet PO DAILY 05/22/24 03/05/25 History fumarate 28 mg-folic acid 800 mcg tablet () sertraline 100 mg tablet 100 mg PO DAILY 05/22/24 03/05/25 History Allergies Allergy/AdvReac Type Severity Reaction Status Date / Time No Known Allergies Allergy Verified 03/16/25 18:35 Vital Signs Vital Signs - 24 hr 03/18/25 11:49 Pulse Rate 58 L Blood Pressure 115/72 Exam Const: General: cooperative, healthy appearing and comfortable Nutritional Appearance: average body habitus Orientation/consciousness: oriented to person, oriented to place and oriented to time HENMT: Head: normal to inspection Resp: Effort & Inspection: normal respiratory effort Cardio: Rate: regular rate Rhythm: regular rhythm Heart sounds: S1 normal heart sound present and S2 normal heart sound present GI: Inspection: normal to inspection (Gravid soft uterus) : External Female Exam: normal external appearance Speculum Exam - Vagina: normal appearance of the vagina Speculum Exam - Cervix: normal appearance of the cervix (Cervix 5-6/90/-1. Clear fluid seen. heart tones reassuring) H&P: Results Labs Labs: Short CBC 03/18/25 Range/Units 11:28 WBC 16.6 H (4.5-10.0) K/mm3 Hgb 10.6 L (12.0-15.0) g/dL Hct 30.5 L (37.0-47.0) % Plt Count 312 (150-375) k/mm3 Assessment and Plan Assessment and plan (1) Term : Code(s): Z34.90 - Encounter for supervision of normal , unspecified, unspecified trimester Status: Acute Plan Spontaneous vaginal delivery expected. She is an epidural candidate.
--- NOTE | 2025-03-18 12:43 | P.PCNOB_ITS ---
OB - Vaginal Delivery Note Procedure Delivery date: 03/18/25 Induction method: None Delivery monitor: External FHT, External Uterine and Internal FHT Route of delivery: Episiotomy description: None Laceration Description: None Quantitative Blood Loss (ml): 62 Anesthesia type: None Disposition: Floor Complications: No immediate complications Narrative: Patient was admitted at 38 and half weeks gestation with spontaneous rupture membranes her had been uncomplicated. There was a bag still present and this was ruptured meconium fluid noted. She rapidly went to complete and pushed delivering the head in the BASSEM position. Nuchal cord check was noted be loose x1 rib role of occiput. Anterior posterior shoulder delivered spontaneously. Cord clamped x2 and cut infant passed off the table given Apgars of 8 [id number] 9 [id number]. Cord blood was drawn. Placenta delivered intact spontaneously. Twenty of Pitocin placed IV to help firm the uterus. After SPECT in the vagina no tears or lacerations were noted there were no complications and QBL was 62cc [place] Baby Date of : 03/18/25 Time of : 12:35 Gestational Age by Date: 38 Infant gender: Male presentation: vertex position: Right Occiput Anterior Placenta delivery description: Spontaneous Cord Vessel Description: 3 Vessels, Nuchal Cord, Loose, Reduced and Clamped/Cut score one minute: 8 score five minutes: 9
--- NOTE | 2025-03-18 12:46 | PM.DS ---
DS: Admitting Diagnosis Discharge Date 03/19/2025 Admitting Diagnosis Term DS: Discharge Diagnosis Discharge Diagnosis (1) Term : Code(s): Z34.90 - Encounter for supervision of normal , unspecified, unspecified trimester Status: Acute DS: Summary Hospital Course Reason for hospitalization: Patient was admitted with ruptured membranes at term on 03/18/2025 underwent spontaneous vaginal delivery Hospital Course: Patient's hospital course unremarkable. She remained afebrile she was up without difficulty, eating regular diet, ambulating, and generally without complaints. Time Spent with Patient Time attestation: Total time spent providing and/or coordinating discharge services: Exam Const: General: cooperative, healthy appearing and comfortable Nutritional Appearance: average body habitus Orientation/consciousness: oriented to person, oriented to place and oriented to time HENMT: Head: normal to inspection Resp: Effort & Inspection: normal respiratory effort Cardio: Rate: regular rate Rhythm: regular rhythm Heart sounds: S1 normal heart sound present and S2 normal heart sound present GI: Inspection: normal to inspection (Gravid soft uterus) : External Female Exam: normal external appearance Speculum Exam - Vagina: normal appearance of the vagina Speculum Exam - Cervix: normal appearance of the cervix (Cervix 5-6/90/-1. Clear fluid seen. heart tones reassuring) DS: Data Data Completed and Pending Labs on day of discharge: Labs from last 24 hours 03/18/25 11:28 WBC 16.6 H RBC 3.48 L Hgb 10.6 L Hct 30.5 L MCV 87.6 MCH 30.5 MCHC 34.8 RDW 14.0 Plt Count 312 MPV 9.5 Immature Gran % (Auto) 0.5 Neut % (Auto) 82.1 H Lymph % (Auto) 12.2 L [place] % (Auto) 4.8 Eos % (Auto) 0.1 Baso % (Auto) 0.3 Lymph # (Auto) 2.02 [place] # (Auto) 0.8 H Eos # (Auto) 0.0 Baso # (Auto) 0.1 Abs Immat Gran (auto) 0.09 H Absolute Neuts (auto) 13.6 H Absolute Nucleated RBC 0.000 Nucleated RBC % 0.0 Blood Type O Positive Antibody Screen Negative Discharge Plan Discharge Attending physician on discharge: Timothy Miller Discharging Clinician: Timothy Miller Patient Disposition: Home Activity: september shower, no straining and pelvic rest Diet: heart healthy Wound Care Instructions: follow printed instructions Patient Instructions: Antibiotic Form Patient Language: Albanian Stand Alone Forms: General Discharge Information Follow-up/Referrals: Timothy Miller MD [Physician, [employer]] Discharge Medications: Continued sertraline 100 mg tablet 100 mg PO DAILY PNV no.95-ferrous fumarate-FA [] 28 mg iron- 800 mcg tablet 1 tablet PO DAILY Date of admission: 03/18/25 10:35 Primary Care Provider: UNKNOWN,DOCTOR Admitting Provider: Timothy Miller Attending physician on admission: Timothy Miller Condition: Stable
[2025-03-18 12:58] LABS: OBXCEM ROM Plus Positive (Negative)
[2025-03-18 13:13] LABS: Syphilis IgG/IgM Antibody Non-Reactive (Nonreactive)
[2025-03-18] MEDS: OXYTOCIN 30 UNITS/NS 500 ML 30 UNITS/500 ML BAG 125 UNITS IV CONT (13:18)
[2025-03-18] MEDS: IBUPROFEN 600 MG TABLET PO ×2 (13:35→23:10)
--- NOTE | 2025-03-18 13:48 | LDADM ---
This patient, Milagro Mcfadden, was admitted to Labor/Delivery/Recovery 106 on 03/18/25 at 10:35. Plans for labor, pain management and were discussed with patient. Patient/family oriented to hospital policies and general routines including ID bracelet, bed and alarms, visiting hours, pain management, procedures, bathroom and other care routines, personal items, smoking policy, room service/diet and guest tray routines, infant security routines, and visiting hours. Patient/Family are encouraged to report perceived risks to care and to ask questions if they do not understand what they are told or what they should do. See OBIX for further documentation.
--- NOTE | 2025-03-18 15:10 | OBPPTRN ---
1445- Patient transferred to post room #281 via wheelchair. Support person present. Oriented to unit, room, information board, rooming in, admission packet and security measures. Patient verbalizes understanding.
[2025-03-18] MEDS: WITCH HAZEL 40 PADS 1 PAD TOPICAL (16:09)
[2025-03-18] MEDS: BENZOCAINE 20% AER SPR (*SP) 56 GM CAN 1 SPRAY TOPICAL (16:09)
[2025-03-18] MEDS: ACETAMINOPHEN 325 MG TABLET 650 MG PO (18:44)
[2025-03-19 04:27] VITALS: BP 116/73; PULSE 59; RESP 16; TEMP 36.7; O2SAT 100
[2025-03-19 04:54] LABS: Hematocrit 27.5 % (37.0-47.0); Hemoglobin 9.3 g/dL (12.0-15.0)
--- NOTE | 2025-03-19 06:58 | P.PNOB_ITS ---
OB - PN: Subj Subjective Date/time seen: 03/19/25 06:58 Patient comments: no complaints baby status: doing well OB - PN: Obj Data Labs 03/19/25 04:19 Labs: Laboratory Results - last 24 hr 03/18/25 03/18/25 03/19/25 10:56 11:28 04:19 WBC 16.6 H RBC 3.48 L Hgb 10.6 L 9.3 L Hct 30.5 L 27.5 L MCV 87.6 MCH 30.5 MCHC 34.8 RDW 14.0 Plt Count 312 MPV 9.5 Immature Gran % (Auto) 0.5 Neut % (Auto) 82.1 H Lymph % (Auto) 12.2 L [place] % (Auto) 4.8 Eos % (Auto) 0.1 Baso % (Auto) 0.3 Lymph # (Auto) 2.02 [place] # (Auto) 0.8 H Eos # (Auto) 0.0 Baso # (Auto) 0.1 Abs Immat Gran (auto) 0.09 H Absolute Neuts (auto) 13.6 H Absolute Nucleated RBC 0.000 Nucleated RBC % 0.0 Membranes Rupture Rom plus positive Syphilis IgG/IgM Ab Non-reactive Blood Type O Positive Antibody Screen Negative OB - PN A/P Assessment and Plan (1) Term : Code(s): Z34.90 - Encounter for supervision of normal , unspecified, unspecified trimester Status: Acute Time Spent With Patient Time: Total time spent is greater than 50% in coordination of care (as documented) at patient's floor/unit and/or counseling patient: Review of Systems 2 Review of Systems: All systems reviewed & are unremarkable except as noted in HPI and below Constitutional: Constitutional: Reports no additional constitutional complaints ENT: Reports as per HPI Cardiovascular: Cardiovascular: Reports no additional cardiovascular complaints, Denies chest pain and Denies dyspnea Respiratory: Respiratory: Reports no additional respiratory complaints, Denies chest congestion, Denies cough and Denies dyspnea Gastrointestinal: Gastrointestinal: Reports as per HPI, Reports nausea and Denies vomiting Musculoskeletal: Musculoskeletal: Reports no additional musculoskeletal complaints Integumentary/Breasts: Skin/Breast: Reports system reviewed and no additional complaints, except as docu Exam 2 Const: General: cooperative, healthy appearing and comfortable Nutritional Appearance: average body habitus Orientation/consciousness: oriented to person, oriented to place and oriented to time HENMT: Head: normal to inspection Resp: Effort & Inspection: normal respiratory effort Cardio: Rate: regular rate Rhythm: regular rhythm Heart sounds: S1 normal heart sound present and S2 normal heart sound present GI: Inspection: normal to inspection (Gravid soft uterus) : External Female Exam: normal external appearance Speculum Exam - Vagina: normal appearance of the vagina Speculum Exam - Cervix: normal appearance of the cervix (Cervix 5-6/90/-1. Clear fluid seen. heart tones reassuring)
[2025-03-19 07:30] VITALS: BP 122/71; PULSE 58; RESP 16; TEMP 37.3; O2SAT 97
[2025-03-19] MEDS: MULTIVIT/MIN/PREN/FOL AC/IRON TABLET 1 TAB PO (09:55)
[2025-03-19] MEDS: DOCUSATE SODIUM 100 MG CAPSULE PO (09:55)
[2025-03-19] MEDS: IBUPROFEN 600 MG TABLET PO (09:55)
[2025-03-19 12:04] VITALS: BP 107/80; PULSE 56; RESP 18; TEMP 36.9; O2SAT 98
[2025-03-20 08:25] VITALS: BP 136/79; PULSE 70; RESP 18; TEMP 37; O2SAT 99
== END 2025-03-19 14:25 | disposition home or self-care (01) | DRG 807 ==
LOC: ANHLDR 12:47 → ANHOB2 14:48
PROVIDERS: Admitting Provider Obstetrics & Gynecology; Visit Provider Obstetrics & Gynecology
DX: O62.3 Precipitate labor (principal); Z37.0 Single live birth; Z3A.38 38 weeks gestation of pregnancy; O69.81X0 Labor and delivery complicated by cord around neck, without compression, not applicable or unspecified; O77.0 Labor and delivery complicated by meconium in amniotic fluid; Z23 Encounter for immunization
CPT/HCPCS: 36415; 84112; 85014; 85018; 85025; 86593; 86850; 86900; 86901; A9270; G0378; G0379; J2405; J2590; J2795; J7120